=== PATIENT | female | born 1970 | race Caucasian/White ===

== ENCOUNTER 2025-01-18 10:49 | Emergency (ER) | payer OTHER, SELFPAY ==
[2025-01-18 11:02] VITALS: BP 142/83
[2025-01-18 11:41] LABS: % Eosinophils 2.2 % (0-6); % Immature Granulocytes 0.2 % (0-0.5); % Lymphocytes 24.9 % (20.5-51.1); % Monocytes 8.6 % (1.7-9.3); % Neutrophils 63.1 % (42.2-75.2); Absolute Basophils 0.1 10^3/uL (0-0.2); Absolute Eosinophils 0.1 10^3/uL (0-0.7); Absolute Lymphocytes 1.4 10^3/uL (1.2-3.4); Absolute Monocytes 0.5 10^3/uL (0.1-0.6); Absolute Neutrophils 3.7 10^3/uL (1.4-6.5); Hematocrit 36.9 % (37.0-47.0); Hemoglobin 12.4 g/dL (12.0-16.0); Mean Corp Hgb Conc. 33.6 g/dL (33.0-37.0); Mean Corpuscular Hgb 30.2 pg (27.0-31.0); Mean Platelet Volume 9.4 fL (7.4-10.4); Nucleated Red Blood Cells % 0 %; Platelet Count 254 10^3/uL (130-400); Red Cell Dist. Width 12.2 % (11.5-14.5); White Blood Cell Count 5.8 10^3/uL (4.8-10.8)
[2025-01-18 11:58] LABS: ALT (SGPT) 18 U/L (0-35); AST (SGOT) 26 U/L (14-36); Albumin 4.2 g/dl (3.5-5.0); Alkaline Phosphatase 72 U/L (38-126); Blood Urea Nitrogen 17 mg/dl (7-17); Calcium 9.8 mg/dl (8.4-10.2); Carbon Dioxide 30 mmol/L (22-30); Chloride 103 mmol/L (98-107); Glucose 116 mg/dl (70-99); Potassium 4.8 mmol/L (3.5-5.1); Sodium 137 mmol/L (135-145); Total Bilirubin 0.5 mg/dl (0.2-1.3); Total Protein 6.9 g/dl (6.3-8.2); eGFR > 60.00
--- NOTE | 2025-01-18 12:59 | ED.GENMED ---
History of Present Illness
<EMERALD Leung - Last Filed: 01/19/25 20:56>
General
Chief Complaint: Headache
Source: patient
Exam Limitations: none
Time Seen by Provider: 01/18/25 12:27
Nursing documentation reviewed up to this point in time: agreed with
History of Present Illness
History of Present Illness:
54 yr old female presented to the ER complaining of headache. She reports on Friday she started with a sudden headache which has been persistent since. She is mildly light sensitive. She complains of pressure all throughout her head which
radiates down to her neck and shoulders. She denies any fever or chills. Denies any recent illness neck trauma. She has taken Motrin Tylenol which has not relieved her symptoms. She does get stress headaches in the past however she reports this
feels slightly different. Denies any rash recent illness.
Past History
<EMERALD Leung - Last Filed: 01/19/25 20:56>
Past History
ED Past Medical History: None
Social History
Living: with family
Employment: Employed
Review of Systems
<EMERALD Leung - Last Filed: 01/19/25 20:56>
Review of Systems
Allergies reviewed?: Yes
All Other Systems: ROS reviewed and negative except as documented in HPI and ROS
Constitutional: Reports no symptoms
EENT: Reports other (Light sensitivity)
Respiratory: Reports no symptoms
Cardiac: Reports no symptoms
ABD/GI: Reports nausea; Denies abdominal pain or vomiting
: Reports no symptoms
Musculoskeletal: Reports neck pain (neck mildly sore)
Skin: Reports no symptoms
Neurological: Reports headache
Phy Exam
<EMERALD Leung - Last Filed: 01/19/25 20:56>
General Physical Exam
General Presentation: no apparent distress
General age: appears stated age
General Skin: warm and dry
General Habitus: normal
General Mental: alert
ENT Exam
ENT Exam: EOMI and neck supple
Course
<EMERALD Leung - Last Filed: 01/19/25 20:56>
Orders/Labs/Results
Orders:
Orders
01/18/25 11:34
CBC/With Diff [Complete Blood Count/With Diff] Urgent
Comprehensive Metabolic Panel Urgent
01/18/25 13:11
CT Head W/o Iv Contrast Urgent
Comment:
Reason For Exam: headache
01/18/25 13:12
IV Insert/Care/Rem.- Treatment PRN
0.9% Sodium Chloride 1000 ml [Nss] 1,000 ml IV BOLUS
Diphenhydramine [Benadryl] 25 mg IV NOW STA
01/18/25 13:14
Metoclopramide [Reglan] 10 mg IV NOW STA
01/18/25 16:52
CT Head & Neck Angio W/wo IV Urgent
Comment:
Reason For Exam: Abrupt headache
01/18/25 16:54
Ketorolac [Toradol] 15 mg IV NOW STA
Abnormal Lab Results
01/18/25
11:34
RBC 4.10 L 10^6/uL
(4.20-5.40)
Hct 36.9 L %
(37.0-47.0)
Glucose 116 H mg/dl
(70-99)
01/18/25 11:34
01/18/25 11:34
Vital Signs
Initial and Last Documented VS:
Initial Vital Signs
Temp Pulse Resp BP Pulse Ox
98 F 82 16 142/83 100
01/18/25 11:02 01/18/25 11:02 01/18/25 11:02 01/18/25 11:02 01/18/25 11:02
Last Documented Vital Signs
Temp Pulse Resp BP Pulse Ox
98.1 F 80 18 138/85 96
01/18/25 17:34 01/18/25 17:34 01/18/25 19:09 01/18/25 17:34 01/18/25 17:34
Stationary Engineer Apprentice consulted with Physician
Stationary Engineer Apprentice consulted with physician?: Yes
Name of Physician Consulted: Is[facility]
<Jamaal Marinelli MD - Last Filed: 01/18/25 17:09>
Orders/Labs/Results
Orders:
Orders
01/18/25 11:34
CBC/With Diff [Complete Blood Count/With Diff] Urgent
Comprehensive Metabolic Panel Urgent
01/18/25 13:11
CT Head W/o Iv Contrast Urgent
Comment:
Reason For Exam: headache
01/18/25 13:12
IV Insert/Care/Rem.- Treatment PRN
0.9% Sodium Chloride 1000 ml [Nss] 1,000 ml IV BOLUS
Diphenhydramine [Benadryl] 25 mg IV NOW STA
01/18/25 13:14
Metoclopramide [Reglan] 10 mg IV NOW STA
01/18/25 16:52
CT Head & Neck Angio W/wo IV Urgent
Comment:
Reason For Exam: Abrupt headache
01/18/25 16:54
Ketorolac [Toradol] 15 mg IV NOW STA
Abnormal Lab Results
01/18/25
11:34
RBC 4.10 L 10^6/uL
(4.20-5.40)
Hct 36.9 L %
(37.0-47.0)
Glucose 116 H mg/dl
(70-99)
01/18/25 11:34
01/18/25 11:34
Vital Signs
Initial and Last Documented VS:
Initial Vital Signs
Temp Pulse Resp BP Pulse Ox
98 F 82 16 142/83 100
01/18/25 11:02 01/18/25 11:02 01/18/25 11:02 01/18/25 11:02 01/18/25 11:02
Last Documented Vital Signs
Temp Pulse Resp BP Pulse Ox
98.1 F 80 18 138/85 96
01/18/25 17:34 01/18/25 17:34 01/18/25 19:09 01/18/25 17:34 01/18/25 17:34
<EMERALD Leung - Last Filed: 01/19/25 20:56>
MDM/Problems Addressed
Differential Diagnosis Includes:
Not limited to headache, tension headache, migraine, less likely intracranial hemorrhage
MDM/Problems Addressed:
Patient is document is a 54-year-old female with history of headaches however this headache started started abruptly on Friday several days ago. This feels slightly different than her normal headaches. It has not been relieved with Tylenol
ibuprofen. Patient presents awake alert no acute distress she denies any fever she does complain of mild light sensitivity however has a normal neurologic exam she has no meningismus she is afebrile with a normal white count. CT head head was
done and negative. Patient was given Reglan Benadryl fluids. CAT scan was negative. Patient still complains of headache after CAT scan was given Toradol. Case reviewed ED physician with abrupt nature of headache check CT head neck and angio
though likely tension muscular headache. Patient is nontoxic has been on her phone.
Patient to be discharged home if CTA negative with outpatient follow-up with family doctor, NSAIDs and Tylenol as needed.
<EMERALD Leung - Last Filed: 01/19/25 20:56>
*Critical Care Note
Total Time (30-74mins, 75-104mins- exclusive of procedures): Not Applicable
ED Attending Note
<EMERALD Leung - Last Filed: 01/19/25 20:56>
-
Portions of this chart may have been created with voice recognition software.� Occasional wrong word or��sound alike� substitutions may have occurred due to the inherent limitations of voice recognition software.
<Jamaal Marinelli MD - Last Filed: 01/18/25 17:09>
ED Attending Note
Patient seen and examined by attending physician: Yes
ED Attending Note:
I have seen and evaluated the patient with a [id number] encounter. I have spoken to the advance practicer provider and involved in the medical history, the physical exam, medical decision making.
Evaluation and management service: agree unless noted differently below.
Results interpretation: agree unless noted differently below.
Focused HPI: 54-year-old female with no reported chronic medical issues presents to the emergency room for evaluation of headache. Patient reports symptoms started Friday evening and they have been constant since that time�she says they started
rather suddenly while she was sitting on the couch after dinner. She denies any trauma or injury. She reports pain at the base of the skull posteriorly radiates towards the top of the head and all around in a band. No clear triggering or
relieving factors noted�has been taking Tylenol and Motrin without significant relief. She reports associated soreness in the neck as well as some sensitivity to light. No nausea or vomiting. No fevers or chills. No other complaints. She does
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
Physical exam: Awake alert resting comfortably not in distress. Cranial nerves are intact 2 through 12, motor and sensory intact in all extremities. Speech fluid no dysarthria. No limb ataxia. She has a supple neck without meningismus.
Medical Decision Makin-year-old female presents for evaluation of headache started Friday constant since then. She does report rather abrupt onset. Vitals and exam as above. Labs were sent off which were unremarkable. She was negative for
flu and COVID at urgent care today. Sent for CT head which was negative for any acute pathology. Given relatively rapid onset will check CTA to rule out aneurysm. Will treat symptomatically�I do suspect this is more likely a tension headache.
Very low suspicion for meningitis based on history and clinical exam and in my judgment no indication for emergent lumbar puncture at this point in time.
Discharge Plan
Departure
Patient Disposition: Home (Routine Discharge)
Date of Disposition: 01/18/25
Time of Disposition: 18:59
Patient with high blood pressure during this ER visit?: Yes
Condition: Fair
Covid-19: Not Applicable
Discharge Problem:
Headache
Instructions: Headache, Adult (DC), BLOOD PRESSURE
Referrals:
[place] CRNP [Family Provider] -
Activity Restrictions/Additional Instructions:
You may continue to alternate between ibuprofen and Tylenol for symptoms. Follow-up close with your family doctor in the next several days; call tomorrow to make an appointment and return if any worsening of symptoms.
Interventions
Interventions:
*Risk Screen - Suicide Last Done: 01/18/25 11:02
*General Assessment Last Done: 01/18/25 19:09
*Neglect/Abuse Screening Last Done: 01/18/25 11:02
*ED- Fall Risk Assessment Last Done: 01/18/25 19:09
*ED COVID-19 Vaccine History Last Done: 01/18/25 19:09
*Nursing Disposition Last Done: 01/18/25 19:09
ED- Neurological Assessment Last Done: 01/18/25 13:30
Discharge Date and Time
Discharge Date/Time: 01/18/25 19:10
Print Language: ROMANIAN
[2025-01-18] MEDS: BENADRYL 25 MG IV (13:24)
[2025-01-18] MEDS: REGLAN 10 MG IV (13:27)
[2025-01-18] MEDS: NSS 1000 IV (13:32)
[2025-01-18] MEDS: TORADOL 15 MG IV (16:58)
[2025-01-18 17:34] VITALS: BP 138/85
== END 2025-01-18 19:10 | disposition home or self-care (01) ==
LOC: EMR 10:49
PROVIDERS: Emergency Medicine; EMERGENCY PHYSICIAN Emergency Medicine; FAMILY PHYSICIAN Nurse Practitioner Adult Health
DX: R51.9 Headache, unspecified (principal); R11.0 Nausea; M54.2 Cervicalgia; R03.0 Elevated blood-pressure reading, without diagnosis of hypertension; Z91.048 Other nonmedicinal substance allergy status
CPT/HCPCS: 99284; 96361; 96374; 96375 ×2; 70450; 70496; 70498; 80053; 85025; Q9967